=== PATIENT | female | born 1950 | race Caucasian/White ===

== ENCOUNTER → 2023-10-31 14:09 | Outpatient (REF) | payer MEDICARE, OTHER, SELFPAY | LOC: WDC 14:09 | PROVIDERS: ATTENDING PHYSICIAN Obstetrics & Gynecology Gynecology; FAMILY PHYSICIAN Family Medicine | DX: Z12.31 Encounter for screening mammogram for malignant neoplasm of breast (principal) | CPT/HCPCS: 77063; 77067 ==

== ENCOUNTER → 2024-03-23 06:35 | Outpatient (REF) | payer MEDICARE, OTHER, SELFPAY ==
[2024-03-23 08:02] LABS: ALT (SGPT) 17 U/L (0-35); AST (SGOT) 23 U/L (14-36); Albumin 4.3 g/dl (3.5-5.0); Alkaline Phosphatase 88 U/L (38-126); Blood Urea Nitrogen 21 mg/dl (7-17); Calcium 10.1 mg/dl (8.4-10.2); Carbon Dioxide 27 mmol/L (22-30); Chloride 105 mmol/L (98-107); Glucose 103 mg/dl (70-99); HDL Cholesterol 95 mg/dl; LDL Cholesterol, Calculated 104 mg/dl; Potassium 4.8 mmol/L (3.5-5.1); Sodium 138 mmol/L (135-145); Total Cholesterol 221 mg/dl (50-199); Total Protein 7.1 g/dl (6.3-8.2); Triglyceride 114 mg/dl (10-149); Very Low Density Lipoprotein 22 mg/dl (0-30); eGFR 59.49
[2024-03-23 08:24] LABS: % Basophils 0.7 % (0-2); % Immature Granulocytes 0.2 % (0-0.5); % Lymphocytes 28.7 % (20.5-51.1); % Monocytes 8.2 % (1.7-9.3); % Neutrophils 58.2 % (42.2-75.2); Absolute Eosinophils 0.2 10^3/uL (0-0.7); Absolute Lymphocytes 1.7 10^3/uL (1.2-3.4); Absolute Monocytes 0.5 10^3/uL (0.1-0.6); Absolute Neutrophils 3.5 10^3/uL (1.4-6.5); Hemoglobin 14.4 g/dL (12.0-16.0); Mean Corp Hgb Conc. 33.5 g/dL (33.0-37.0); Mean Corpuscular Hgb 28.7 pg (27.0-31.0); Mean Corpuscular Volume 85.8 fL (81.0-99.0); Mean Platelet Volume 10.3 fL (7.4-10.4); Nucleated Red Blood Cells % 0 %; Platelet Count 286 10^3/uL (130-400); Red Blood Cell Count 5.01 10^6/uL (4.20-5.40); Red Cell Dist. Width 15.9 % (11.5-14.5)
[2024-03-23 08:48] LABS: Vitamin D, 25-OH*** 32.8 ng/mL (30-80)
== END ==
LOC: REG 06:35
PROVIDERS: ATTENDING PHYSICIAN Family Medicine
DX: E03.9 Hypothyroidism, unspecified (principal); E78.2 Mixed hyperlipidemia; E55.9 Vitamin D deficiency, unspecified
CPT/HCPCS: 36415; 80053; 80061; 82306; 84443; 85025

== ENCOUNTER → 2024-11-05 14:33 | Outpatient (REF) | payer MEDICARE, OTHER, SELFPAY | LOC: WDC 14:33 | PROVIDERS: ATTENDING PHYSICIAN Obstetrics & Gynecology Gynecology; FAMILY PHYSICIAN Family Medicine | DX: Z12.31 Encounter for screening mammogram for malignant neoplasm of breast (principal) | CPT/HCPCS: 77063; 77067 ==

== ENCOUNTER → 2025-03-09 06:36 | Outpatient (REF) | payer MEDICARE, OTHER, SELFPAY ==
[2025-03-09 07:39] LABS: Hematocrit 43.4 % (37.0-47.0); Hemoglobin 14.1 g/dL (12.0-16.0); Mean Corp Hgb Conc. 32.5 g/dL (33.0-37.0); Mean Corpuscular Volume 87.0 fL (81.0-99.0); Nucleated Red Blood Cells % 0 %; Platelet Count 268 10^3/uL (130-400); Red Cell Dist. Width 15.9 % (11.5-14.5)
[2025-03-09 09:03] LABS: ALT (SGPT) 20 U/L (0-35); AST (SGOT) 21 U/L (14-36); Albumin 4.5 g/dl (3.5-5.0); Alkaline Phosphatase 79 U/L (38-126); Blood Urea Nitrogen 22 mg/dl (7-17); Calcium 10.1 mg/dl (8.4-10.2); Carbon Dioxide 26 mmol/L (22-30); Chloride 107 mmol/L (98-107); Glucose 98 mg/dl (70-99); HDL Cholesterol 105 mg/dl; LDL Cholesterol, Calculated 111 mg/dl; Potassium 4.7 mmol/L (3.5-5.1); Sodium 141 mmol/L (135-145); Total Protein 7.4 g/dl (6.3-8.2); Very Low Density Lipoprotein 16 mg/dl (0-30); eGFR 59.12
[2025-03-09 11:49] LABS: Vitamin D, 25-OH*** 30.8 ng/mL (30-80)
[2025-03-09 12:02] LABS: TSH 3.65 uIU/ml (0.47-4.68)
== END ==
LOC: REG 06:36
PROVIDERS: ATTENDING PHYSICIAN Family Medicine
DX: L71.9 Rosacea, unspecified (principal); E78.2 Mixed hyperlipidemia; E03.9 Hypothyroidism, unspecified; E55.9 Vitamin D deficiency, unspecified
CPT/HCPCS: 36415; 80053; 80061; 82306; 84443; 85025

== ENCOUNTER 2025-05-12 06:22 | Day surgery (SDC) | payer MEDICARE, OTHER, SELFPAY | END 2025-05-12 11:02 | disposition home or self-care (01) | LOC: GI 06:22 | PROVIDERS: ATTENDING PHYSICIAN Internal Medicine Gastroenterology | DX: Z12.11 Encounter for screening for malignant neoplasm of colon (principal); K64.9 Unspecified hemorrhoids; K57.30 Diverticulosis of large intestine without perforation or abscess without bleeding; K44.9 Diaphragmatic hernia without obstruction or gangrene; K22.2 Esophageal obstruction; K22.10 Ulcer of esophagus without bleeding; K31.89 Other diseases of stomach and duodenum | CPT/HCPCS: 43249; 43239; G0121; 88305; 88342 ==

== ENCOUNTER → 2025-05-29 13:51 | Outpatient (REF) | payer MEDICARE, OTHER, SELFPAY | LOC: CLAB 13:51 | PROVIDERS: ATTENDING PHYSICIAN Physician Assistant | DX: R61 Generalized hyperhidrosis (principal); R10.32 Left lower quadrant pain | CPT/HCPCS: 87086 ==